=== PATIENT | male | born 1975 | race Caucasian/White ===

== ENCOUNTER → 2017-04-14 | Day surgery (SDC) | payer OTHER ==
[~2017-04-14] VITALS: Ht 180.3 cm; Wt 87.0 kg
[~2017-04-14] MED LIST: ACETAMINOPHEN/HYDROcodone 325 MG/5 MG TAB PO PRN; BUPIVACAINE/EPINEPHRINE 0.5% 50 ML VIAL ONE; CHLORHEXIDINE GLUCONATE 2 % 1 PACK (2 CLOTHS) TOPICAL PRN; DEXAMETHASONE SOD PHOS 4 MG/ML VIAL IV ONE; DO NOT ADM ANY ANTICOAGULANT DRUGS PRN; INSULIN HUMAN REGULAR 1,000 UNITS/10 ML VIAL SQ PRN; LACTATED RINGER'S 1000 ML IV PRN; LIDOCAINE 1%/EPINEPHrine 1:100,000 SOLN 50 ML VIAL ONE; LIDOCAINE HCL 1% PF 5 ML AMPULE OTHER ONE; METOPROLOL TARTRATE 25 MG TAB PO PRN; ONDANSETRON HCL 4 MG/2 ML VIAL IV PUSH ONE; PHENYLEPH/NS 1000 MCG/10 ML SYR IV ONE; POVIDONE IODINE 5% (ANTISEPSIS KIT) 4 APPLICATIONS EACH NARE PRN; PROPOFOL 200 MG/20 ML AMP IV ONE; SODIUM BICARBONATE 8.4% INJ 0 ML ONE; SODIUM CHLORID 0.9% 500 ML IV PRN; SUCCINYLCHOLINE CHLORIDE 100 MG/5 ML SYRINGE IV PUSH ONE; ceFAZolin INJ 1,000 MG VIAL IV ONE
--- NOTE | 2017-04-14 12:39 | MP ---
cc: GISELLE ALMEIDA,LOPEZ DATE OF SURGERY: 04/14/2017 PREOPERATIVE DIAGNOSIS: Lymphadenopathy in need of tissue diagnosis. POSTOPERATIVE DIAGNOSIS: Lymphadenopathy in need of tissue diagnosis. OPERATION: Left cervical deep lymph node removal, 2 cm for tissue diagnosis. ANESTHESIA: General. SURGEON: Dr. Varner. INDICATIONS FOR PROCEDURE: This is a pleasant 42 year-old gentleman who was sent to me by Dr. Giselle Almeida of [facility]. He has some lymphadenopathy, requires biopsy for tissue diagnosis for planning. PROCEDURE: The patient was taken to the operating room and placed under IV sedation after the anesthesia. His left neck was prepped with betadine, a time out was done. The lymph node has been previously marked and palpated, visualized on the CT scan on the left cervical area. Made a curvilinear incision about two cm above the clavicle. We incised the platsymal muscle. This node appears to be slightly lateral to the sternocleidomastoid. The body of the sternocleidomastoid is spread along the muscle fibers to get down to the lymph node that measured approximately 2 cm's. It is lateral to the carotid. It is carefully teased away using the blunt dissection. Small branching vessels were cauterized with electrocautery device. The two cm lymph node which is deep in this area and the deep muscles are the carefully excised completely. The area is then irrigated, There is actually hemostasis, we sent this down to pathology fresh for pathological analysis. The diagnosis of questionable lymphoma. After assuring hemostasis the platysmal was reapproximated with 3-0 Vicryl and the skin was closed with the 4-0 Vicryl. Steri-strips were applied. Sterile bandage applied. The patient tolerated the procedure without any immediate postoperative complications. MD NICOLE Anderson/jacob /12:24 PM /12:28 PM
[2017-04-14 13:15] VITALS: BP 130/84; PULSE 66; RESP 18; TEMP 97.8; O2SAT 98
== END | disposition home or self-care (01) ==
LOC: HSDC 08:53
PROVIDERS: ATTEND Surgery
DX: C81.11 Nodular sclerosis Hodgkin lymphoma, lymph nodes of head, face, and neck (principal)
CPT/HCPCS: 88305; 88341; 88342; J0330; J0690; J1100; J2370; J2405; J3010; J7120

== ENCOUNTER → 2017-04-20 | Day surgery (SDC) | payer OTHER ==
[~2017-04-20] MED LIST changes: +ACETAMINOPHEN 1000 MG/100 ML 100 ML IV ONE; -ACETAMINOPHEN/HYDROcodone 325 MG/5 MG TAB PO PRN; +BUPIVACAINE/EPINEPHRINE 0.25% PF 30 ML VIAL INFIL ONE; -BUPIVACAINE/EPINEPHRINE 0.5% 50 ML VIAL ONE; -CHLORHEXIDINE GLUCONATE 2 % 1 PACK (2 CLOTHS) TOPICAL PRN; -DEXAMETHASONE SOD PHOS 4 MG/ML VIAL IV ONE; -DO NOT ADM ANY ANTICOAGULANT DRUGS PRN; +HEPARIN SODIUM - IV 10,000 UNITS/10 ML VIAL ONE; -INSULIN HUMAN REGULAR 1,000 UNITS/10 ML VIAL SQ PRN; +LACTATED RINGER'S 1000 ML INJ 1,000 ML ONE; -LACTATED RINGER'S 1000 ML IV PRN; -LIDOCAINE 1%/EPINEPHrine 1:100,000 SOLN 50 ML VIAL ONE; +LIDOCAINE 1.5%/EPINEPHrine 1:200,000 PF SOLN 10ML SDV INFIL ONE; -LIDOCAINE HCL 1% PF 5 ML AMPULE OTHER ONE; -METOPROLOL TARTRATE 25 MG TAB PO PRN; +MIDAZOLAM HCL 2 MG/2 ML VIAL ONE; -PHENYLEPH/NS 1000 MCG/10 ML SYR IV ONE; -POVIDONE IODINE 5% (ANTISEPSIS KIT) 4 APPLICATIONS EACH NARE PRN; -SODIUM BICARBONATE 8.4% INJ 0 ML ONE; -SODIUM CHLORID 0.9% 500 ML IV PRN; +SODIUM CHLORIDE 0.9% INJ 10 ML ONE; -SUCCINYLCHOLINE CHLORIDE 100 MG/5 ML SYRINGE IV PUSH ONE; -ceFAZolin INJ 1,000 MG VIAL IV ONE; +ceFAZolin INJ 1,000 MG VIAL ONE
--- NOTE | 2017-04-20 13:20 | TN ---
cc: LOPEZ VARNER ERIC DATE OF SURGERY: 04/20/2017 PREOPERATIVE DIAGNOSIS Hodgkin's lymphoma. POSTOPERATIVE DIAGNOSIS Hodgkin's lymphoma. PROCEDURE Placement of left-sided Owqowc-H-Mmat under fluoroscopic guidance. ANESTHESIA MAC. INDICATION This is a pleasant 42-year-old gentleman who had some lymphadenopathy. This was biopsied showing Hodgkin's lymphoma. Plans were made for above. PROCEDURE The patient was taken to the operating room and placed in the supine position. After anesthesia his left shoulder and neck were prepped with Betadine. A time-out was done. He is given preoperative antibiotics. We anesthetized the area just under the infraclavicular area on the left side. Under fluoroscopic guidance we are able to cannulate the subclavian vein and then thread the guidewire into the superior vena cava. The introducer and dilator were then threaded over the guidewire. The guidewire was removed and through the introducer the catheter is threaded through and cut at 22 cm Under fluoroscopic guidance, so it lays in the superior vena cava at its final resting place. We then snapped it onto the port site in the typical fashion. Aspirated blood flows easily and flushed with heparinized saline solution. We then placed it in the subcutaneous pocket, secured it to the deep layer with 3-0 Vicryl. The deep layer was closed with 3-0 Vicryl and skin is closed with 4-0 Monocryl. Steri-Strips were applied. Sterile bandage was applied. The patient tolerated the procedure well and had no immediate postop complications. A stat portable chest x-ray is pending at the time of this dictation. Lopez Varner MD JDB/TLL /1:01 PM /1:06 PM VICENTE
== END | disposition home or self-care (01) ==
LOC: ESDC 10:26
PROVIDERS: ATTEND Surgery
DX: Z45.2 Encounter for adjustment and management of vascular access device (principal); C81.90 Hodgkin lymphoma, unspecified, unspecified site
CPT/HCPCS: 00400; 36590; 77001; C1788; J0131; J0690; J1644; J2250; J2405; J3010; J7120

== ENCOUNTER → 2017-05-21 | Day surgery (SDC) | payer OTHER ==
[~2017-05-21] VITALS: Ht 180.3 cm; Wt 88.6 kg
[~2017-05-21] MED LIST changes: -ACETAMINOPHEN 1000 MG/100 ML 100 ML IV ONE; -BUPIVACAINE/EPINEPHRINE 0.25% PF 30 ML VIAL INFIL ONE; +BUPIVACAINE/EPINEPHRINE 0.5% PF 30 ML VIAL ONE; +CHLORHEXIDINE GLUCONATE 2 % 1 PACK (2 CLOTHS) TOPICAL PRN; +DEXAMETHASONE SOD PHOS 4 MG/ML VIAL IV ONE; -LACTATED RINGER'S 1000 ML INJ 1,000 ML ONE; +LACTATED RINGER'S 1000 ML IV PRN; -LIDOCAINE 1.5%/EPINEPHrine 1:200,000 PF SOLN 10ML SDV INFIL ONE; +METOPROLOL TARTRATE 25 MG TAB PO PRN; -MIDAZOLAM HCL 2 MG/2 ML VIAL ONE; +NORC5TAB PO; +POVIDONE IODINE 5% (ANTISEPSIS KIT) 4 APPLICATIONS EACH NARE PRN; +PROPOFOL 500 MG/50 ML INJ 50 ML ONE; +SODIUM CHLORID 0.9% 500 ML IV PRN; -SODIUM CHLORIDE 0.9% INJ 10 ML ONE; +VANCOMYCIN 1,000 MG/NS 250 ML IV SCH; +VANCOMYCIN HCL 1000 MG ON-CALL/NS 250 ML IV SCH; -ceFAZolin INJ 1,000 MG VIAL ONE
[2017-05-21 16:15] VITALS: BP 110/69; PULSE 56; RESP 18; TEMP 97.5; O2SAT 98
--- NOTE | 2017-05-21 16:23 | RADRPT ---
EXAM DATE/TIME: 05/21/2017 15:58 [facility] COMPARISON: No previous studies available for comparison. INDICATIONS : Post port placement. MEDICAL HISTORY : None. SURGICAL HISTORY : None. ENCOUNTER: Initial ACUITY: 1 day PAIN SCORE: 0/10 LOCATION: Bilateral chest FINDINGS: A single view of the chest demonstrates the lungs to be symmetrically aerated without evidence of mas s, infiltrate or effusion. The cardiomediastinal contours are unremarkable. Osseous structures are intact. There is a right-sided subclavian Port-A-Cath. Tip is at the cavoatrial junction. No pneumoth orax. CONCLUSION: 1. Right subclavian Port-A-Cath in good position without pneumothorax. Oliverio Francisco Jr., MD on May 21, 2017 at 16:21 Board Certified Radiologist. This report was verified electronically.
--- NOTE | 2017-05-22 06:19 | MP ---
cc: GISELLE VIVEROS,HAN Gary M.D. DATE OF SURGERY 05/21/2017 PREOPERATIVE DIAGNOSIS Need of Kczpug-O-Tfdg for chemotherapy for lymphoma. POSTOPERATIVE DIAGNOSIS Need of Jtroij-K-Vjiy for chemotherapy for lymphoma. PROCEDURE Placement of right-sided Qdyqbi-A-Dfja for chemotherapy with fluoroscopic guidance. ANESTHESIA TIVA. SURGEON Dr. Varner INDICATION This is a 42-year-old gentleman who has diagnosis of lymphoma. He had a left-sided Qwyfay-Z-Aosn but he got an early infection with MRSA after a dose or two of chemotherapy. This was removed. He was treated. This has healed. Plans were made for placement of right-sided Swnmpl-F-Kalj. PROCEDURE The patient was taken to the operating room, placed in supine position after anesthesia. He was given 1 gram of vancomycin. A time-out was done. He is prepped with Betadine. We anesthetize the area with a Marcaine solution in the infraclavicular area on the right side, cannulate the subclavian vein without difficulty, thread the guidewire into the superior vena cava. The catheter is cut to size about 16.5 cm. The introducer and dilator are then threaded over the guidewire. The dilator and guidewire were removed and the catheter was threaded to the introducer. The introducer was removed and passed off the field. The port aspirates blood quite easily and is flushed with heparin solution. It is sutured to the deep layer with 3-0 Vicryl. The deep layer is closed with 3-0 Vicryl and the skin closed with 4-0 Vicryl. Steri-Strips were applied. Sterile bandage was applied. The patient tolerated the procedure well and had no immediate postop complications. Han Varner MD JESHA/AMELIA /3:19 PM /6:09 AM
== END | disposition home or self-care (01) ==
LOC: HSDC 11:35
PROVIDERS: ATTEND Surgery
DX: C81.11 Nodular sclerosis Hodgkin lymphoma, lymph nodes of head, face, and neck (principal)
CPT/HCPCS: 00532; 36561; 71010; 77001; C1788; J1100; J1644; J2405; J3010; J3370; J7050; J7120